=== PATIENT | female | born 1985 | race African-American/Black ===

== ENCOUNTER 2018-02-28 18:47 | Emergency (ER) | payer BC, OTHER ==
[~2018-02-28] VITALS: Ht 177.8 cm; Wt 97.5 kg
[~2018-02-28 18:47] MED LIST: AMOXICILLIN 50500 MG PO; ATIVAN0.5 MG PO; BENADRYL25 MG PO; FIORICET 50-321 EACH PO; IBUPROFEN 800800 MG PO; MULTIVITAMIN W1 EAC5 PO; NORCO 5-325 TA1 EACH PO; PEPCID20 MG PO; PREDNISONE 20 M20 MG PO; PREDNISONE50 MG PO; PROVENTIL; VENTOLIN HFA 1818 GM INH; ZOFRAN ODT4 MG PO
[2018-02-28 20:37] LABS: ABSOLUTE NEUTROPHILS 5.2 thou/uL (1.4-8.2); BASOPHILS 0.8 % (0.0-2.0); HEMATOCRIT 36.7 % (37.0-47.0); HEMOGLOBIN 12.4 gm/dL (12.0-15.0); LYMPHOCYTES 29.5 % (24.0-44.0); MCHC 33.7 g/dL (28.0-37.0); MONOCYTES 6.2 % (1.0-8.0); PLATELET COUNT 218 thou/uL (150-400); POLYS 62.5 % (36.0-66.0); RBC 4.13 mil/uL (4.20-5.00); WBC 8.3 thou/uL (4.0-11.0)
[2018-02-28 20:44] LABS: CALCIUM 8.9 mg/dL (8.5-10.1); CREATININE 0.8 mg/dL (0.6-1.0); POTASSIUM 3.5 mmol/L (3.5-5.1)
[2018-02-28 20:50] LABS: ALBUMIN 3.3 g/dL (3.4-5.0); TOTAL BILIRUBIN 0.3 mg/dL (<0.1-1.0); TOTAL PROTEIN 7.3 g/dL (6.4-8.2)
[2018-02-28 21:34] VITALS: BP 109/64
== END 2018-02-28 21:34 | disposition home or self-care (01) ==
LOC: ER 18:47
PROVIDERS: Emergency Medicine
DX: O9A.211 Injury, poisoning and certain other consequences of external causes complicating pregnancy, first trimester (principal); O26.891 Other specified pregnancy related conditions, first trimester; S06.0X0A Concussion without loss of consciousness, initial encounter; R10.12 Left upper quadrant pain; Z91.018 Allergy to other foods; Z91.041 Radiographic dye allergy status; Z3A.01 Less than 8 weeks gestation of pregnancy; V89.2XXA Person injured in unspecified motor-vehicle accident, traffic, initial encounter; Y93.89 Activity, other specified; Y92.89 Other specified places as the place of occurrence of the external cause; Y99.8 Other external cause status

== ENCOUNTER 2018-09-26 23:51 | Emergency (ER) | payer BC, OTHER ==
[~2018-09-26] VITALS: Ht 175.3 cm; Wt 97.5 kg
[2018-09-27] MEDS ORDERED: ACCUNEB SO1.25 MG/1 INH (00:09)
[2018-09-27 00:20] LABS: ABSOLUTE NEUTROPHILS 6.7 thou/uL (1.4-8.2); BASOPHILS 0.6 % (0.0-2.0); EOSINOPHILS 1.3 % (0.0-3.0); HEMATOCRIT 37.2 % (37.0-47.0); HEMOGLOBIN 12.5 gm/dL (12.0-15.0); LYMPHOCYTES 23.4 % (24.0-44.0); MCH 30.1 pg (26.0-34.0); MCHC 33.6 g/dL (28.0-37.0); MCV 89.4 fL (80.0-100.0); PLATELET COUNT 258 thou/uL (150-400); POLYS 66.7 % (36.0-66.0); RBC 4.16 mil/uL (4.20-5.00); RDW 14.3 % (10.5-14.5); WBC 10.1 thou/uL (4.0-11.0)
[2018-09-27 00:24] LABS: CALCIUM 8.9 mg/dL (8.5-10.1); CREATININE 0.8 mg/dL (0.6-1.0); POTASSIUM 3.6 mmol/L (3.5-5.1)
[2018-09-27 00:27] LABS: URINE CLARITY CLEAR; URINE COLOR YELLOW
[2018-09-27 00:30] LABS: ALBUMIN 3.5 g/dL (3.4-5.0); TOTAL BILIRUBIN 0.6 mg/dL (<0.1-1.0); TOTAL PROTEIN 7.9 g/dL (6.4-8.2)
[2018-09-27] MEDS ORDERED: ZOFRAN ODT4 MG DISSOLVE (00:38)
[2018-09-27 00:45] LABS: URINE GLUCOSE-RANDOM* NEGATIVE (Negative); URINE PROTEIN (DIPSTICK) NEGATIVE (Negative); URINE SPECIFIC GRAVITY >= 1.030 (1.005-1.035)
[2018-09-27 00:46] LABS: URINE BLOOD TRACE (Negative); URINE KETONES TRACE (Negative); URINE LEUKOCYTES TRACE (Negative); URINE NITRITE NEGATIVE (Negative); URINE UROBILINOGEN 0.2 E.U./dl (0.2-1.0)
[2018-09-27 00:47] LABS: ICTOTEST (BILI CONFIRMATORY) Negative (Negative); URINE BILIRUBIN NEGATIVE (Negative)
[2018-09-27 01:50] VITALS: BP 130/78
== END 2018-09-27 01:52 | disposition home or self-care (01) ==
LOC: ER 23:51
PROVIDERS: Emergency Medicine
DX: R19.7 Diarrhea, unspecified (principal); R11.2 Nausea with vomiting, unspecified; R10.30 Lower abdominal pain, unspecified; K75.9 Inflammatory liver disease, unspecified; Z91.041 Radiographic dye allergy status; Z91.011 Allergy to milk products

== ENCOUNTER 2020-03-26 20:57 | Emergency (ER) | payer BC, OTHER ==
[~2020-03-26] VITALS: Ht 175.3 cm; Wt 104.3 kg
[~2020-03-26 20:57] MED LIST changes: +ACCUNEB SO1.25 MG/1 INH; +ZOFRAN ODT4 MG DISSOLVE
[2020-03-26 22:14] LABS: URINE BILIRUBIN NEGATIVE (Negative); URINE BLOOD TRACE (Negative); URINE CLARITY CLEAR; URINE COLOR YELLOW; URINE GLUCOSE-RANDOM* NEGATIVE (Negative); URINE KETONES NEGATIVE (Negative); URINE LEUKOCYTES-REFLEX NEGATIVE (Negative); URINE NITRITE-REFLEX NEGATIVE (Negative); URINE PROTEIN (DIPSTICK) NEGATIVE (Negative); URINE SPECIFIC GRAVITY >= 1.030 (1.005-1.035); URINE UROBILINOGEN 0.2 E.U./dl (0.2-1.0)
[2020-03-26 23:21] VITALS: BP 127/71
== END 2020-03-26 23:27 | disposition home or self-care (01) ==
LOC: ER 20:57
PROVIDERS: Emergency Medicine
DX: R53.83 Other fatigue (principal); Z20.828 Contact with and (suspected) exposure to other viral communicable diseases; Z91.011 Allergy to milk products; Z98.890 Other specified postprocedural states